=== PATIENT | female | born 1980 | race American Indian/Alaskan Native ===

== ENCOUNTER 2018-10-06 06:26 | Observation (INO) | payer MEDICAID ==
[2018-10-06] MEDS ORDERED: LACTATED RINGERS 2,000 ML ONE (07:29)
[2018-10-06] MEDS ORDERED: LACTATED RINGERS 1,000 ML IV SCH (08:00)
[2018-10-06 08:02] LABS: Hematocrit 33.7 % (30.3-42.9); Hemoglobin 11.7 gm/dl (10.1-14.3); Mean Corpuscular HGB Conc 35 % (30-34); Mean Corpuscular Volume 91 fl (79-97); Platelet Count 317 K/mm3 (140-440); Red Cell Distribution Width 12.8 % (13.2-15.2)
[2018-10-06] MEDS ORDERED: BICITRA PO ONE (10:46)
[2018-10-06] MEDS ORDERED: LACTATED RINGERS 1,000 ML IV ONE (10:46)
[2018-10-06] MEDS ORDERED: PEPCID IV SCH (11:00)
[2018-10-06] MEDS ORDERED: REGLAN IV NR (11:00)
--- NOTE | 2018-10-06 11:24 | Anesthesia Consultation ---
Anesthesia Consult and Med Hx Date of service: 10/06/18 - Airway Anesthetic Teeth Evaluation: Good ROM Head & Neck: Adequate Mental/Hyoid Distance: Adequate Mallampati Class: Class II Intubation Access Assessment: Probably Good - Pulmonary Exam CTA: Yes - Cardiac Exam Cardiac Exam: RRR - Pre-Operative Health Status ASA Pre-Surgery Classification: ASA2 Proposed Anesthetic Plan: General, Spinal - Pulmonary Hx Asthma: No - Cardiovascular System Hx Hypertension: No - Central Nervous System Hx Seizures: No Hx Psychiatric Problems: No - Gastrointestinal Hx Gastroesophageal Reflux Disease: No - Endocrine Hx Renal Disease: No Hx Hypothyroidism: No Hx Hyperthyroidism: No - Hematic Hx Anemia: No Hx Sickle Cell Disease: No - Other Systems Hx Alcohol Use: No Hx Substance Use: No Hx Cancer: No Hx Obesity: Yes
--- NOTE | 2018-10-06 11:25 | Anesthesia Day of Surgery ---
Anesthesia Day of Surgery - Day of Surgery Patient Examined: Yes Patient H&P Reviewed: Yes Patient is NPO: Yes
[2018-10-06] MEDS ORDERED: ANCEF/STERILE WATER 2 GM/20 ML 2 GM/20 ML SYRINGE IV ONE (12:21)
--- NOTE | 2018-10-06 13:07 | Event Note ---
Date: 10/06/18 Late note HP reviewed and there were no changes. Proceed to OR for cervical cerclage.
--- NOTE | 2018-10-06 13:14 | Procedure Note ---
Date of procedure: 10/06/18 Pre-op diagnosis: cervical incompetence, Hx PTL, 13 weeks IUP Post-op diagnosis: same Procedure: cervical cerclage Procedure note The patient was taken to the OR where spinal anesthesia was obtained; placed in the dorsal lithotomy postion; 2 g ancef given. Bales was placed for urinary drainage; weighted speculum was placed and anterior lip of cervix exposed with anterior vaginal wall retractor; anterior lip of the cervix was grasped and 5 Mersilene suture was used to take pass from 12 to 9 oclock ; 3 addtional passes were taken in the counterclockwise fashion to end back at the anterior component of cervix; knot was tied with 8 knots and all instruments were removed. The count was correct. Rectal exam was performed and normal. Bales catheter was left in place. The patient tolerated the procedure well and was taken to the PACU in a stable condition. No complications Anesthesia: spinal Surgeon: GILLIAN SCALES Estimated blood loss: minimal Urine output: 300 Pathology: none Condition: stable Disposition: PACU
[2018-10-06] MEDS ORDERED: TYLENOL PO PRN (13:30)
[2018-10-06 15:57] VITALS: BP 120/57
--- NOTE | 2018-10-06 16:58 | Post Anesthesia Evaluation ---
- Post Anesthesia Evaluation Patient Participated: Yes Airway Patent: Yes Stable Respiratory Function: Yes Nausea/Vomiting: No Temp > 96.8F: Yes Pain Manageable: Yes Adequeate Hydration: Yes Anesthesia Complications: No Block Receding Appropriately: Yes
== END 2018-10-06 17:20 | disposition home or self-care (01) ==
LOC: TRG 06:26 → LD 06:33 → EDSTATUS 07:30 → TRG 10:03 → LD 10:07
PROVIDERS: ADMIT Obstetrics & Gynecology Maternal & Fetal Medicine; ATTEND Obstetrics & Gynecology Maternal & Fetal Medicine
DX: O34.31 Maternal care for cervical incompetence, first trimester (principal); Z3A.13 13 weeks gestation of pregnancy
CPT/HCPCS: 36415; 59320; 85027; 86850; 86900; 86901; 96374; 96375; G0378; G0480; J0690; J2765; J7120; 80320; 96360; 96361; 96365

== ENCOUNTER 2020-10-31 08:35 | Emergency (ER) | payer MEDICAID ==
[2020-10-31 09:03] VITALS: BP 124/83
[2020-10-31] MEDS ORDERED: SODIUM CHLORIDE 0.9% 1000 ML 1,000 ML IV ONE (10:37)
[2020-10-31] MEDS ORDERED: dexAMETHasone 20 MG/5 ML VIAL IV ONE (10:37)
[2020-10-31] MEDS ORDERED: FAMOTIDINE 20 MG/2 ML INJ IV ONE (10:37)
--- NOTE | 2020-10-31 10:49 | Emergency Department Report ---
ED Allergic Reaction HPI - General Chief complaint: Allergic Reaction Stated complaint: ALLERGIC REACTION Time Seen by Provider: 10/31/20 10:26 Source: patient Mode of arrival: Ambulatory Limitations: No Limitations - History of Present Illness Initial Comments: This is a 40-year-old female brought by EMS nontoxic, well nourished in appearance, no acute signs of distress presents to the ED with c/o of redness and itching to bilateral feet status post prior to arrival bee sting. Patient stated EMS provided Benadryl on arrival. Patient states it is itching and redness. Patient denies any drooling, hoarseness or facial swelling. Patient denies any trauma. She denies any fever, chills, nausea, vomiting, chest pain, shortness of breath, headache, stiff neck, numbness or tingling. Patient denies any allergies significant past medical history. MD Complaint: allergic reaction -: This morning Exposure: insect bite Symptoms: rash, itching. denies: facial swelling, lip swelling, difficulty swallowing, difficulty breathing, orolingual swelling, hoarseness, syncopy, dizziness, nausea, vomiting, abdominal pain Severity: mild Treatment Prior to Arrival: benadryl Previous Allergy History: none - Related Data Allergies Allergy/AdvReac Type Severity Reaction Status Date / Time No Known Allergies Allergy Verified 10/06/18 07:53 ED Review of Systems ROS: Stated complaint: ALLERGIC REACTION Other details as noted in HPI Comment: All other systems reviewed and negative Constitutional: denies: chills, fever Eyes: denies: eye pain, eye discharge, vision change ENT: denies: ear pain, throat pain Respiratory: denies: cough, shortness of breath, wheezing Cardiovascular: denies: chest pain, palpitations Endocrine: no symptoms reported Gastrointestinal: denies: abdominal pain, nausea, diarrhea Genitourinary: denies: urgency, dysuria, discharge Musculoskeletal: denies: back pain, joint swelling, arthralgia Skin: rash. denies: lesions, change in color, change in hair/nails, pruritus Neurological: denies: headache, weakness, paresthesias Psychiatric: denies: anxiety, depression Hematological/Lymphatic: denies: easy bleeding, easy bruising ED Past Medical Hx - Past Medical History Previous Medical History?: No Hx Hypertension: No Hx Congestive Heart Failure: No Hx Diabetes: No Hx Deep Vein Thrombosis: No Hx Renal Disease: No Hx Sickle Cell Disease: No Hx Seizures: No Hx Asthma: No Hx COPD: No Hx HIV: No - Surgical History Past Surgical History?: No - Social History Smoking Status: Never Smoker ED Physical Exam - General Limitations: No Limitations General appearance: alert, in no apparent distress - Head Head exam: Present: atraumatic, normocephalic - Eye Eye exam: Present: normal appearance - ENT ENT exam: Present: normal exam, normal orophraynx, other (No angioedema. Uvula midline. No facial swelling.) - Neck Neck exam: Present: normal inspection, full ROM. Absent: lymphadenopathy - Respiratory Respiratory exam: Present: normal lung sounds bilaterally. Absent: respiratory distress, wheezes, rales, rhonchi, stridor, chest wall tenderness, accessory muscle use, decreased breath sounds, prolonged expiratory - Cardiovascular Cardiovascular Exam: Present: regular rate, normal rhythm, normal heart sounds. Absent: bradycardia, tachycardia, irregular rhythm, systolic murmur, diastolic m urmur, rubs, gallop - Extremities Exam Extremities exam: Present: normal inspection, full ROM, normal capillary refill, other (Anterior mid foot itching with some rash bilaterally. No swelling.). Absent: tenderness, joint swelling, calf tenderness - Expanded Lower Extremity Exam Right 1 - Allergic reaction present here 2 - Allergic reaction present here - Back Exam Back exam: Present: full ROM - Neurological Exam Neurological exam: Present: alert, oriented X3, normal gait - Psychiatric Psychiatric exam: Present: normal affect, normal mood - Skin Skin exam: Present: warm, dry, intact, normal color, rash. Absent: cyanosis, diaphoretic, urticaria, vesicles, petechiae, pallor, abrasion, ecchymosis ED Course Vital Signs 10/31/20 09:02 Temperature 98.1 F Pulse Rate 85 Respiratory 18 Rate Blood Pressure 124/83 [Right] O2 Sat by Pulse 99 Oximetry - Reevaluation(s) Reevaluation #1: 10/31/20 10:49 Patient is speaking in full sentences with no signs of distress noted. ED Medical Decision Making - Medical Decision Making This is a 40-year-old female that presents with allergic reaction. Patient is stable was examined by me. There is no facial swelling. No angioedema. There is no cellulitis. No hoarseness. Patient received 1 L normal saline, Benadryl (EMS), Decadron, and Pepcid in the ED IV. Patient was instructed not to operate any machinery after discharge due to possible drowsiness of Benadryl. Patient stated that a family member will drive patient home after discharge. Patient was observed for a while prior to discharge with symptoms improving and subsided. No angioedema upon discharge was noted. Patient was referred to Follow-up with a primary care doctor in 3-5 days or if symptoms worsen and continue return to emergency room as soon as possible. At time of discharge, the patient does not seem toxic or ill in appearance. No acute signs of distress noted. Patient agrees to discharge treatment plan of care. No further questions noted by the patient. Critical care attestation.: If time is entered above; I have spent that time in minutes in the direct care of this critically ill patient, excluding procedure time. ED Disposition Clinical Impression: Allergic reaction Qualifiers: Encounter type: initial encounter Qualified Code(s): T78.40XA - Allergy, unspecified, initial encounter Disposition: DC-01 TO HOME OR SELFCARE Is pt being admited?: No Does the pt Need Aspirin: No Condition: Stable Additional Instructions: Follow-up with a primary care doctor in 3-5 days or if symptoms worsen and continue return to emergency room as soon as possible. Referrals: STEPAN QUIROS MD [Primary Care Provider] - 3-5 Days DILLON SCHOFIELD MD [Staff Physician] - 3-5 Days Forms: Work/School Release Form(ED) Time of Disposition: 12:03
== END 2020-10-31 12:21 | disposition home or self-care (01) ==
LOC: ED 08:35
DX: T78.40XA Allergy, unspecified, initial encounter (principal)
CPT/HCPCS: 96361; 96374; 96375; 99283; J1100; J7030